=== PATIENT | male | born 1985 | race Two or more races ===

== ENCOUNTER 2024-09-06 16:04 | Emergency (ER) | payer BC ==
[~2024-09-06] VITALS: Ht 172.7 cm; Wt 109.1 kg
[2024-09-06 16:50] VITALS: TEMP 98.1
[2024-09-06] MEDS: methocarbamoL 500 MG TABLET PO ONE (17:56)
[2024-09-06] MEDS: KETOROLAC TROMETHAMINE 30 MG/ML VIAL IM ONE (17:56)
[2024-09-06] MEDS: LIDOCAINE 5% TRANSDERMAL PATCH TD ONE (17:56)
[2024-09-06 18:58] VITALS: BP 140/93; PULSE 100; RESP 18; O2SAT 98
[2024-09-06] MEDS ORDERED: IBUP-1492 PO (19:04)
[2024-09-06] MEDS ORDERED: METH-659 PO (19:04)
== END 2024-09-06 19:20 | disposition home or self-care (01) ==
LOC: EMS 16:11
DX: S39.012A Strain of muscle, fascia and tendon of lower back, initial encounter (principal); X50.0XXA Overexertion from strenuous movement or load, initial encounter; Y93.89 Activity, other specified; Y92.89 Other specified places as the place of occurrence of the external cause; Y99.8 Other external cause status
CPT/HCPCS: 99283; 96372; J1885

== ENCOUNTER 2025-03-01 21:46 | Inpatient (IN) | payer MEDICAID, OTHER ==
[~2025-03-01] VITALS: Ht 172.7 cm; Wt 91.5 kg
[~2025-03-01 21:46] MED LIST: IBUP-1492 PO; METH-659 PO
[2025-03-01] MEDS: ONDANSETRON 4 MG TABLET PO ONE (22:25)
[2025-03-01] MEDS: FAMOTIDINE 20 MG/2 ML VIAL IVP ONE (22:25)
[2025-03-01] MEDS: MORPHINE SULFATE 2 MG/ML SYRINGE IVP ONE (22:25)
[2025-03-01] MEDS: SODIUM CHLORIDE 0.9% 1,000 ML IV ONE (22:25)
[2025-03-01 22:33] LABS: PLATELET COUNT (AUTO) 242 K/uL (150-450); RED BLOOD CELL COUNT(AUTO) 5.20 MIL/uL (4.50-5.90); RED CELL DISTRIBUTION WIDTH 14.1 % (11.5-14.5); WHITE BLOOD COUNT (AUTO) 11.3 K/uL (4.5-11.0)
[2025-03-01] MEDS: ONDANSETRON HCL 4 MG/2 ML VIAL IVP ONE (22:36)
[2025-03-01 23:00] LABS: PLATELET MORPHOLOGY COMMENT LARGE PLTS PRESENT; RBC MORPHOLOGY COMMENT NORMAL RBC MORPH
[2025-03-01 23:07] LABS: CALCIUM, TOTAL 9.5 mg/dL (8.8-10.5); CREATININE 1.09 mg/dL (0.60-1.30); GLOMERULAR FILTR. RATE CALC > 60 mL/min (>60); GLUCOSE,RANDOM 169 mg/dL (70-110); SODIUM SERUM 142 mmol/L (136-145); UREA NITROGEN, BLOOD 11 mg/dL (7-18)
[2025-03-01] MEDS: METOCLOPRAMIDE HCL 5 MG/ML 2 ML VIAL IVP ONE (23:12)
[2025-03-01 23:20] LABS: ASPARTATE AMINOTRANSFERASE 28.0 U/L (15-37); TOTAL PROTEIN, SERUM 7.9 g/dL (6.4-8.2)
[2025-03-02] MEDS: CAPSAICIN 0.075% 60 GM CREAM TP ONE (01:40)
[2025-03-02 02:33] LABS: PH,URINE DRUG SCREEN 5.5 (5.0-8.0)
[2025-03-02 02:34] LABS: APPEARANCE,URINE HAZY (CLEAR); GLUCOSE, URINE (UA) TRACE mg/dL (NEGATIVE); LEUKOCYTE ESTERASE ,URINE NEGATIVE (NEGATIVE); NITRATE,URINE NEGATIVE (NEGATIVE); OCCULT BLOOD,URINE MODERATE (NEGATIVE); SPECIFIC GRAVITIY, URINE 1.036 (1.003-1.030)
[2025-03-02 02:40] LABS: ALCOHOL, URINE DRUG SCREEN NEGATIVE (NEGATIVE); AMPHET/METH SCREEN,URINE NEGATIVE (NEGATIVE); BARBITURATE SCREEN, URINE NEGATIVE (NEGATIVE); CANNABINOID SCREEN,URINE POSITIVE (NEGATIVE); COCAINE SCREEN,URINE NEGATIVE (NEGATIVE); METHADONE SCREEN, URINE NEGATIVE (NEGATIVE); SQUAMOUS EPITHELIAL CELL,UR Few /LPF (None Seen)
[2025-03-02] MEDS ORDERED: ACETAMINOPHEN 325 MG TABLET PO PRN (06:15)
[2025-03-02] MEDS ORDERED: BISACODYL 10 MG RECTAL RECTAL SUPPOSITORY PR PRN (06:15)
[2025-03-02] MEDS ORDERED: HYDROCODONE/ACETAMINOPHEN 5-325 MG TABLET PO PRN (06:15)
[2025-03-02] MEDS ORDERED: MAGNESIUM HYDROXIDE SUSPENSION 30 ML UDCUP PO PRN (06:15)
[2025-03-02] MEDS: MORPHINE SULFATE 4 MG/ML SYRINGE IVP PRN (06:53)
[2025-03-02] MEDS: ONDANSETRON HCL 4 MG/2 ML VIAL IVP PRN (06:53)
[2025-03-02 08:00] VITALS: BP 147/85; PULSE 86; RESP 20; TEMP 98.2; O2SAT 100
[2025-03-02] MEDS: PANTOPRAZOLE SODIUM 40 MG DR TABLET PO SCH (08:49)
[2025-03-02] MEDS: HEPARIN SODIUM,PORCINE 5,000 UNITS/ML VIAL SQ SCH (08:49)
[2025-03-02] MEDS: DOCUSATE SODIUM 100 MG CAPSULE PO SCH (08:50)
[2025-03-02 13:09] VITALS: BP 135/88; PULSE 88; RESP 17; TEMP 98.2; O2SAT 97
[2025-03-02] MEDS: MAGNESIUM SULFATE 2 GM, MVI, ADULT NO.1 WITH VIT K 10 ML, THIAMINE 100 MG, FOLIC ACID 1... IV ONE (14:06)
[2025-03-02 16:00] VITALS: BP 126/87; PULSE 90; RESP 20; TEMP 97.9; O2SAT 98
[2025-03-02 20:03] VITALS: BP 117/87; PULSE 81; RESP 18; TEMP 98.2; O2SAT 97
[2025-03-03 05:00] VITALS: BP 111/80; PULSE 77; RESP 17; TEMP 98; O2SAT 98
[2025-03-03 07:44] VITALS: BP 114/81; PULSE 68; RESP 18; TEMP 98.8; O2SAT 97
[2025-03-03 08:21] LABS: PLATELET COUNT (AUTO) 218 K/uL (150-450); RED BLOOD CELL COUNT(AUTO) 4.55 MIL/uL (4.50-5.90); RED CELL DISTRIBUTION WIDTH 14.5 % (11.5-14.5); WHITE BLOOD COUNT (AUTO) 6.0 K/uL (4.5-11.0)
[2025-03-03 08:32] LABS: CALCIUM, TOTAL 8.4 mg/dL (8.8-10.5); CREATININE 1.03 mg/dL (0.60-1.30); GLOMERULAR FILTR. RATE CALC > 60 mL/min (>60); GLUCOSE,RANDOM 92 mg/dL (70-110); SODIUM SERUM 141 mmol/L (136-145); UREA NITROGEN, BLOOD 13 mg/dL (7-18)
[2025-03-03 12:00] VITALS: BP 115/79; PULSE 79; RESP 18; TEMP 98.2; O2SAT 100
[2025-03-03 15:28] VITALS: BP 104/75; PULSE 83; RESP 20; TEMP 98.6; O2SAT 97
[2025-03-03 16:00] VITALS: BP 117/78; PULSE 89; RESP 18; TEMP 97.9; O2SAT 98
[2025-03-03 19:52] VITALS: BP 108/67; PULSE 67; RESP 18; TEMP 98.1; O2SAT 99
[2025-03-04 04:58] VITALS: BP 125/76; PULSE 78; RESP 19; TEMP 98.2; O2SAT 97
[2025-03-04 07:19] LABS: PLATELET COUNT (AUTO) 216 K/uL (150-450); RED BLOOD CELL COUNT(AUTO) 4.61 MIL/uL (4.50-5.90); RED CELL DISTRIBUTION WIDTH 14.2 % (11.5-14.5); WHITE BLOOD COUNT (AUTO) 6.4 K/uL (4.5-11.0)
[2025-03-04 07:35] LABS: CALCIUM, TOTAL 8.7 mg/dL (8.8-10.5); CREATININE 1.03 mg/dL (0.60-1.30); GLOMERULAR FILTR. RATE CALC > 60 mL/min (>60); GLUCOSE,RANDOM 118 mg/dL (70-110); SODIUM SERUM 142 mmol/L (136-145); UREA NITROGEN, BLOOD 11 mg/dL (7-18)
[2025-03-04 08:57] VITALS: BP 116/76; PULSE 93; RESP 18; TEMP 98.1; O2SAT 98
[2025-03-04] MEDS: PALIPERIDONE PALMITATE 234 MG/1.5 ML SYRINGE IM ONE (13:46)
[2025-03-04 17:09] VITALS: BP 113/79; PULSE 84; RESP 16; TEMP 98.3; O2SAT 99
[2025-03-04 19:52] VITALS: BP 123/81; PULSE 89; RESP 18; TEMP 99; O2SAT 100
[2025-03-05 03:24] VITALS: BP 119/79; PULSE 75; RESP 18; TEMP 98.3; O2SAT 100
[2025-03-05 08:00] VITALS: BP 122/80; PULSE 80; RESP 18; TEMP 98.6; O2SAT 100
[2025-03-05 08:17] LABS: PLATELET COUNT (AUTO) 216 K/uL (150-450); RED BLOOD CELL COUNT(AUTO) 4.72 MIL/uL (4.50-5.90); RED CELL DISTRIBUTION WIDTH 14.0 % (11.5-14.5); WHITE BLOOD COUNT (AUTO) 8.5 K/uL (4.5-11.0)
[2025-03-05 08:30] LABS: CALCIUM, TOTAL 8.8 mg/dL (8.8-10.5); CREATININE 1.04 mg/dL (0.60-1.30); GLOMERULAR FILTR. RATE CALC > 60 mL/min (>60); GLUCOSE,RANDOM 106 mg/dL (70-110); SODIUM SERUM 140 mmol/L (136-145); UREA NITROGEN, BLOOD 13 mg/dL (7-18)
[2025-03-05] MEDS ORDERED: PANT-31 PO ×2 (09:51→09:53)
[2025-03-05] MEDS ORDERED: ZOLP-280 PO ×2 (09:51→09:53)
[2025-03-05] MEDS ORDERED: PALI6TAB15 PO (15:10)
[2025-03-05 16:00] VITALS: BP 116/72; PULSE 72; RESP 18; TEMP 98.1; O2SAT 98
[2025-03-05] MEDS: ZOLPIDEM TARTRATE 5 MG TABLET PO PRN (20:29)
[2025-03-06 08:10] VITALS: BP 104/74; PULSE 66; RESP 18; TEMP 98.1; O2SAT 98
[2025-04-01] MEDS ORDERED: PALIPERIDONE PALMITATE 234 MG/1.5 ML SYRINGE IM SCH (09:00)
== END 2025-03-06 13:20 | DRG 249 ==
LOC: EMS 21:46 → EDH 03-02 01:54 → 6S 03-02 03:32
PROVIDERS: ADMIT Internal Medicine; ATTEND Internal Medicine
DX: R11.16 Cannabis hyperemesis syndrome (principal); R71.0 Precipitous drop in hematocrit; R65.10 Systemic inflammatory response syndrome (SIRS) of non-infectious origin without acute organ dysfunction; F12.10 Cannabis abuse, uncomplicated; F20.9 Schizophrenia, unspecified; F15.10 Other stimulant abuse, uncomplicated; K59.00 Constipation, unspecified; F31.9 Bipolar disorder, unspecified; R73.9 Hyperglycemia, unspecified; Z87.11 Personal history of peptic ulcer disease; Z87.440 Personal history of urinary (tract) infections; Z79.899 Other long term (current) drug therapy
CPT/HCPCS: 74176; 76705; 80048; 80076; 80307; 81001; 83690; 85025; 87081; 99285; J1630; J1644; J2270; J2405; J2765; J3411; J3475; J3490; J7030; Q0162